=== PATIENT | male | born 1975 ===

== ENCOUNTER 2022-11-15 16:07 | Emergency (ER) | payer MEDICAID, OTHER ==
[~2022-11-15] VITALS: Ht 182.9 cm; Wt 104.0 kg
[2022-11-15 16:37] VITALS: BP 176/105
== END 2022-11-15 17:24 | disposition left against medical advice (07) ==
LOC: ER 16:07 → EDBD 16:07 → ER 17:24
DX: S00.81XA Abrasion of other part of head, initial encounter (principal); M79.641 Pain in right hand; Z53.21 Procedure and treatment not carried out due to patient leaving prior to being seen by health care provider; V89.2XXA Person injured in unspecified motor-vehicle accident, traffic, initial encounter; Y93.89 Activity, other specified; Y92.89 Other specified places as the place of occurrence of the external cause; Y99.8 Other external cause status